=== PATIENT | male | born 1955 | race Caucasian/White ===

== ENCOUNTER 2018-09-15 12:37 | Emergency (ER) | payer OTHER ==
[~2018-09-15] VITALS: Ht 170.2 cm; Wt 72.6 kg
[2018-09-15 12:41] VITALS: BP_SYST 133
--- NOTE | 2018-09-15 12:41 | NUR ---
Placed in room 1. Placed on manager monitoring, blood pressure machine and pulse oximeter. To gown for exam. Side rails up. Report given to Ramya LAI.
--- NOTE | 2018-09-15 12:42 | NUR ---
Pt AAOx4 BIB ALS s/p 1 minute seizure activity prior to arrival. Pt was sitting down eating a sandwhich and drinking a double shot espresso when suddenly he "lost control of his body" and began convulsing. Accucheck 157 upon arrival. Denies pain/n/v/d/blurred vision/headache. No complaints at this time. Skin pink dry and warm, breathing even and unlabored. No other injuries/complaints per pt/noted. Will continue to monitor.
--- NOTE | 2018-09-15 12:45 | NUR ---
ER Dr. Darby at bedside examining patient.
[2018-09-15] MEDS ORDERED: LORazepam 2 MG/ML VIAL (FOR ER USE) IVP ONE (13:00)
--- NOTE | 2018-09-15 13:04 | NUR ---
Pt taken to radiology via gurney in stable condition.
[2018-09-15 13:05] LABS: BASOPHILS # (AUTO) 0.1 K/uL (0.0-0.2); BASOPHILS % (AUTO) 0.6 % (0.0-2.0); EOSINOPHILS % (AUTO) 0.4 % (0.0-4.0); HEMATOCRIT 45.1 % (36-54); LYMPHOCYTES # (AUTO) 1.8 K/uL (1.0-5.5); LYMPHOCYTES % (AUTO) 19.5 % (20.5-51.5); MEAN CORPUSCULAR HEMOGLOBIN 34 pg (27-31); MEAN CORPUSCULAR HGB CONC 33 % (32-36); MEAN CORPUSCULAR VOLUME 103 fL (79.0-98.0); MONOCYTES # (AUTO) 1.2 K/uL (0.0-1.0); MONOCYTES % (AUTO) 12.2 % (1.7-9.3); NEUTROPHILS # (AUTO) 6.4 K/uL (1.8-7.7); NEUTROPHILS % (AUTO) 67.3 % (40.0-70.0); PLATELET COUNT (AUTO) 144 K/uL (130-430); RED CELL DISTRIBUTION WIDTH 14.5 % (9.0-15.0); WHITE BLOOD COUNT (AUTO) 9.5 K/uL (4.8-10.8)
[2018-09-15 13:13] LABS: CREATININE 1.36 mg/dL (0.55-1.30); POTASSIUM 3.6 mmol/L (3.5-5.1)
--- NOTE | 2018-09-15 13:15 | NUR ---
Patient back to ER bed 1.
[2018-09-15 13:19] LABS: ALBUMIN 4.4 g/dL (3.4-4.8); TOTAL BILIRUBIN 1.1 mg/dL (0.0-1.0)
--- NOTE | 2018-09-15 15:25 | NUR ---
Patient resting in bed @ this time with no signs of acute distress. Patient with no complaints of pain.
[2018-09-15 15:44] VITALS: BP_SYST 137
== END 2018-09-15 15:44 | disposition home or self-care (01) ==
LOC: SED 12:37
DX: R56.9 Unspecified convulsions (principal); Z88.0 Allergy status to penicillin; Z88.2 Allergy status to sulfonamides
CPT/HCPCS: 36415; 70450; 80053; 82962; 85025; 93005; 96374; 99284; J2060